=== PATIENT | female | born 1995 | race Native Hawaiian/Other Pacific Islander ===

== ENCOUNTER 2018-12-31 13:00 | Outpatient (CLI) | payer OTHER ==
[~2018-12-31] VITALS: Ht 154.9 cm; Wt 88.0 kg
[2018-12-31] MEDS ORDERED: ALPR0.25 PO (15:14)
== END 2018-12-31 15:15 | disposition home or self-care (01) ==
LOC: PREOP 13:00
PROVIDERS: ATTEND Surgery
DX: Z01.818 Encounter for other preprocedural examination (principal)

== ENCOUNTER → 2019-01-01 | Outpatient (CLI) | payer OTHER ==
[~2019-01-01] MED LIST: ALPR0.25 PO; CATHETER FLUSH 10 ML SYR IV PRN
--- NOTE | 2019-01-01 19:59 | Diagnostic Imaging Report ---
INDICATION: Epigastric pain. EXAMINATION: Patient was administered 5.1 mCi technetium 99m Choletec intravenously and imaging over the abdomen was performed. At 60 minutes, the patient ingested one can of Ensure and gallbladder ejection fraction was calculated. FINDINGS: There is homogeneous uptake of activity by the liver. There is prompt excretion of activity into the common duct with passage of activity into the small bowel. Activity is also seen within the gallbladder. Gallbladder ejection fraction is normal at 76%. IMPRESSION: Normal HIDA scan and gallbladder ejection fraction. Dictated by: Dictated on workstation # [id number]
== END ==
LOC: CARD 11:17
PROVIDERS: ATTEND Surgery
DX: R10.13 Epigastric pain (principal)
CPT/HCPCS: 78227

== ENCOUNTER 2019-01-04 09:13 | Day surgery (SDC) | payer OTHER ==
[~2019-01-04] VITALS: Ht 154.9 cm; Wt 88.0 kg
[~2019-01-04 09:13] MED LIST changes: -CATHETER FLUSH 10 ML SYR IV PRN
[2019-01-04] MEDS ORDERED: LACTATED RINGERS 1,000 ML IV ONE (09:16)
[2019-01-04] MEDS ORDERED: PROPOFOL INJECTION 50 ML IV ONE (09:31)
[2019-01-04] MEDS ORDERED: MIDAZOLAM 2 MG/2 ML (VERSED) VIAL ONE (09:31)
[2019-01-04] MEDS ORDERED: LACTATED RINGERS 1,000 ML IV STA (09:41)
[2019-01-04] MEDS ORDERED: HURRICAINE EXT TUBE (BENZOCAINE) XX PRN (09:45)
[2019-01-04] MEDS ORDERED: HURRICAINE EXT TUBE (BENZOCAINE) ONE (09:51)
[2019-01-04 09:54] VITALS: BP 117/73
--- NOTE | 2019-01-04 09:57 | Progress Note-Pre Operative ---
Pre-Operative Progress Note H&P Reviewed The H&P was reviewed, patient examined and no changes noted. Time Seen by Provider: 09:54 Date H&P Reviewed: Jan 04, 2019 Time H&P Reviewed: 09:55 Pre-Operative Diagnosis: epigastric pain, diarrhea KHURRAM CHENG DO Jan 04, 2019 09:57
[2019-01-04 10:20] VITALS: BP 107/60
[2019-01-04 10:25] VITALS: BP 110/68
[2019-01-04 10:30] VITALS: BP 116/73
--- NOTE | 2019-01-04 10:58 | Progress Note-Post Operative ---
Post-Operative Progess Note Surgeon (s)/Postal Service Mail Processor (s) Surgeon KHURRAM CHENG DO Postal Service Mail Processor: none Pre-Operative Diagnosis epigastric pain, diarrhea Post-Operative Diagnosis Gastritis Diverticula internal hemorrhoids poor prep Procedure & Operative Findings Date of Procedure 01/04/19 Procedure Performed/Findings EGD with bx colon Anesthesia Type IV sedation by MEDIA/INSTRUCTIONAL DESIGNER Estimated Blood Loss Estimated blood loss (mL): scant Specimens/Packing Specimens Removed antral bx GE jxn bx KHURRAM CHENG DO Jan 04, 2019 10:58
[2019-01-04 11:00] VITALS: BP 115/72
--- NOTE | 2019-01-04 11:00 | Endoscopy Discharge Instruct ---
Endo Procedure/Findings Findings 1.: Gastritis 2.: Diverticulosis 3.: Internal Hemorrhoids Discharge Instructions - Activity: You might feel a little sleepy until tomorrow. This is due to the medicine you received to relax you. Until tomorrow, you should: NOT drive a car, operate machinery or power tools. NOT drink any alcoholic beverages. NOT make any important decisions or sign importortant papers. Do not return to work until tomorrow, unless otherwise instructed. Resume previous activities tomorrow. Diet: Start by taking liquids. If you tolerate liquids, advance to solid food. make an appointment for one week Notify Physician - If you experience excessive bleeding, unusual abdominal pain, fever, or chest pain, contact your doctor immediately. KHURRAM CHENG DO Jan 04, 2019 11:00
[2019-01-04 11:35] VITALS: BP 115/72
--- NOTE | 2019-01-04 14:27 | Anesthesia-General Post-Op ---
MAC Patient Condition Mental Status/LOC: Same as Preop Cardiovascular: Satisfactory Nausea/Vomiting: Absent Respiratory: Satisfactory Pain: Controlled Complications: Absent Post Op Complications Complications None Follow Up Care/Instructions Patient Instructions None needed. Anesthesiology Discharge Order Discharge Order Patient is doing well, no complaints, stable vital signs, no apparent adverse anesthesia problems. No complications reported per nursing. ELISABET DAVIDSON CRNA Jan 04, 2019 14:27
--- NOTE | 2019-01-05 17:21 | OPERATIVE REPORT ---
DATE OF SERVICE: 01/04/2019 PREOPERATIVE DIAGNOSES: Epigastric abdominal pain, excessive diarrhea. POSTOPERATIVE DIAGNOSES: 1. Gastritis. 2. Diverticula. 3. Internal hemorrhoids. 4. Poor prep. PROCEDURES PERFORMED: 1. Esophagogastroduodenoscopy with biopsy. 2. Colonoscopy. SURGEON: Kishan Castro DO. FIRE LIEUTENANT MARINE: None. ANESTHESIA: IV sedation by the MECHANICAL DEVELOPMENT ENGINEER. SPECIMEN: Biopsy from the antrum, biopsy of the GE junction. BLOOD LOSS: Scant. FLUIDS: Per Anesthesia. POSTOPERATIVE CONDITION: Stable. INDICATION FOR PROCEDURE: The patient is a 23-year-old female who has been having abdominal epigastric pain as well as some nausea and some explosive diarrhea, needed a workup. FINDINGS: The patient had some gastritis, looked like she had some almost ulcers or bleeding in the stomach. She had a lot of diverticula throughout the colon. Unfortunately, she had some small internal hemorrhoids. Unfortunately, she had a poor prep, so unable to completely clear the colon. PROCEDURE NOTE: After informed consent was obtained, the patient was brought to the endoscopy suite and placed in the left lateral decubitus position. She was administered IV sedation by the MECHANICAL DEVELOPMENT ENGINEER who then monitored his vitals the entire time, heart rate, blood pressure and pulse ox. I started with the EGD, placed the scope down the mouth through the esophagus and stomach. In the stomach, saw some areas which looked like almost bleeding or ulcers, took a picture of this and then did a biopsy here. This is right at the antrum, pushed into the duodenum. Duodenum looked fine. Pulled the scope back, tried to retroflex the scope, hard to see, may have had a very small hiatal hernia, but possibly none. Pulled the scope into the GE junction which looked okay, we did a biopsy here just to be safe and then suctioned out the air and then pulled the scope up the esophagus and out the mouth. Switched gloves, switched cameras, went down below, started the colonoscopy. The patient had a lot of retained fecal material, but she also had a lot of diverticula, pushed the scope in all the way to 150 cm, able to get to the cecum, took a picture of appendiceal orifice, noted the ileocecal valve and then slowly withdrew the scope insufflating to look circumferentially at the gil looking the cecum, up the ascending colon to the hepatic flexure, then down the transverse colon where she had a lot of diverticula and then down to the splenic flexure into the descending colon, again saw diverticula and a lot of retained fecal material and then down in the sigmoid and finally in the rectum, retroflexed the rectal vault, saw some minimal internal hemorrhoids, took a picture of this and then removed the scope. The patient tolerated the procedure. She was recovered in endoscopy suite. Job ID: [id number] DocumentID: [id number] Dictated Date: 01/05/2019 10:05:50 Machine Gunner Date: 01/05/2019 17:21:06 Dictated By: KISHAN CASTRO DO
== END 2019-01-04 11:35 | disposition home or self-care (01) ==
LOC: ENDO 09:13
PROVIDERS: ATTEND Surgery
DX: K29.70 Gastritis, unspecified, without bleeding (principal); K57.30 Diverticulosis of large intestine without perforation or abscess without bleeding; K64.8 Other hemorrhoids; K44.9 Diaphragmatic hernia without obstruction or gangrene; K31.89 Other diseases of stomach and duodenum; F41.9 Anxiety disorder, unspecified; Z88.5 Allergy status to narcotic agent; Z88.8 Allergy status to other drugs, medicaments and biological substances; Z79.899 Other long term (current) drug therapy
CPT/HCPCS: 84703

== ENCOUNTER 2021-02-19 05:39 | Outpatient (RCR) | payer OTHER ==
[~2021-02-19] VITALS: Ht 154.9 cm; Wt 91.0 kg
== END 2021-02-19 14:41 | disposition home or self-care (01) ==
LOC: PREOP 05:39 → EDSTATUS 08:45 → PREOP 14:41
PROVIDERS: ATTEND Surgery
DX: Z01.818 Encounter for other preprocedural examination (principal)

== ENCOUNTER 2021-02-26 07:42 | Day surgery (SDC) | payer BC, OTHER ==
[~2021-02-26] VITALS: Ht 154.9 cm; Wt 91.0 kg
[2021-02-26] MEDS ORDERED: LACTATED RINGERS 1,000 ML IV STA (07:49)
[2021-02-26] MEDS ORDERED: HURRICAINE EXT TUBE (BENZOCAINE) XX PRN (08:00)
[2021-02-26 08:09] VITALS: BP 114/80
[2021-02-26] MEDS ORDERED: MIDAZOLAM 2 MG/2 ML (VERSED) VIAL ONE (08:13)
[2021-02-26] MEDS ORDERED: proPOfol 200 MG/20 ML (DIPRIVAN) VIAL IV ONE (08:13)
[2021-02-26] MEDS ORDERED: ONDANSETRON 4 MG/2 ML (SDV) Z0FRAN ONE (08:18)
--- NOTE | 2021-02-26 08:55 | Progress Note-Pre Operative ---
Pre-Operative Progress Note H&P Reviewed The H&P was reviewed, patient examined and no changes noted. Time Seen by Provider: 08:53 Date H&P Reviewed: Feb 26, 2021 Time H&P Reviewed: 08:53 Pre-Operative Diagnosis: Gastritis KHURRAM CHENG DO Feb 26, 2021 08:55
[2021-02-26 09:40] VITALS: BP 103/61
--- NOTE | 2021-02-26 09:43 | Progress Note-Post Operative ---
Post-Operative Progess Note Surgeon (s)/Laborer Wharf (s) Surgeon KHURRAM CHENG DO Laborer Wharf: none Pre-Operative Diagnosis Gastritis Post-Operative Diagnosis Gastritis HH Esophagitis Procedure & Operative Findings Date of Procedure 02/26/21 Procedure Performed/Findings EGD with bx PROCEDURE NOTE: After informed consent was obtained, the patient was brought to the endoscopy suite, placed in bed in left lateral decubitus position. She was administered IV sedation by the LAUNDRY TUB MAKER who then monitored vitals the entire time, heart rate, blood pressure and pulse ox and the scope was inserted down the mouth through the esophagus into the stomach. On the way down, noted some mild esophagitis, took a picture, pushed into the stomach, pushed past the antrum into the duodenum; duodenum looked good. Pulled back and did a biopsy of antrum, then retroflexed the scope, saw a very small hiatal hernia, took a picture of this and then did a biopsy of the body of the stomach. Then pulled the scope into the GE junction and then did a biopsy of the GE junction. Pushed the scope back into the stomach, suctioned all the air out of the stomach. At this point pulled the scope up the esophagus and out the mouth. The patient tolerated the procedure, and she recovered in endoscopy suite. Anesthesia Type IV sedation by LAUNDRY TUB MAKER Estimated Blood Loss Estimated blood loss (mL): scant Specimens/Packing Specimens Removed antral bx Body of stomach bx GE jxn bx KHURRAM CHENG DO Feb 26, 2021 09:43
--- NOTE | 2021-02-26 09:44 | Endoscopy Discharge Instruct ---
Endo Procedure/Findings Findings 1.: Gastritis 2.: Hiatal Hernia Discharge Instructions - Activity: You might feel a little sleepy until tomorrow. This is due to the medicine you received to relax you. Until tomorrow, you should: NOT drive a car, operate machinery or power tools. NOT drink any alcoholic beverages. NOT make any important decisions or sign importortant papers. Do not return to work until tomorrow, unless otherwise instructed. Resume previous activities tomorrow. Diet: Start by taking liquids. If you tolerate liquids, advance to solid food. 1.: EGD in 3 years Notify Physician - If you experience excessive bleeding, unusual abdominal pain, fever, or chest pain, contact your doctor immediately. KHURRAM CHENG DO Feb 26, 2021 09:44
[2021-02-26 09:45] VITALS: BP_SYST 103; BP_SYST 104; BP_DIAS 61; BP_DIAS 62
[2021-02-26 10:10] VITALS: BP 118/79
--- NOTE | 2021-02-26 10:11 | Anesthesia-General Post-Op ---
MAC Patient Condition Mental Status/LOC: Same as Preop Cardiovascular: Satisfactory Nausea/Vomiting: Absent Respiratory: Satisfactory Pain: Controlled Complications: Absent Post Op Complications Complications None Follow Up Care/Instructions Patient Instructions None needed. Anesthesiology Discharge Order Discharge Order Patient is doing well, no complaints, stable vital signs, no apparent adverse anesthesia problems. No complications reported per nursing. ELISABET DAVIDSON CRNA Feb 26, 2021 10:11
[2021-02-26 10:12] VITALS: BP 118/79
== END 2021-02-26 10:20 | disposition home or self-care (01) ==
LOC: ENDO 07:42
PROVIDERS: ATTEND Surgery
DX: K29.50 Unspecified chronic gastritis without bleeding (principal); K44.9 Diaphragmatic hernia without obstruction or gangrene; K20.90 Esophagitis, unspecified without bleeding; K31.9 Disease of stomach and duodenum, unspecified; I10 Essential (primary) hypertension; K82.8 Other specified diseases of gallbladder; E66.9 Obesity, unspecified; Z68.38 Body mass index [BMI] 38.0-38.9, adult; F41.9 Anxiety disorder, unspecified; Z72.0 Tobacco use; Z79.899 Other long term (current) drug therapy; Z88.5 Allergy status to narcotic agent; Z88.8 Allergy status to other drugs, medicaments and biological substances
CPT/HCPCS: 84703